=== PATIENT | female | born 1965 | race Caucasian/White ===

== ENCOUNTER 2021-12-10 10:00 | Emergency (ER) | payer BC, SELFPAY ==
[2021-12-10] VITALS (55 sets, daily range): BP systolic 180–238; BP diastolic 78–138; PULSE 59–88; RESP 18–38; TEMP 36.7; O2SAT 90–99; BMI 44.6
--- NOTE | 2021-12-10 10:24 | ED.GENADULT ---
HPI - General Adult General Chief complaint: Hypertension Stated complaint: Extremely high blood pressure, from [facility] Time Seen by Provider: 12/10/21 10:16 Source: patient Mode of arrival: Wheelchair Limitations: no limitations History of Present Illness HPI narrative: This is a 56-year-old female who comes emergency department some from the walk-in clinic for high blood pressure. She went today because she has had a whooshing sound in her ears intermittently. Patient states it makes her feel crazy. She has been very anxious for the last year to 2 with the pandemic and has not been sleeping well. She was up for 36 hours. She does feels very anxious at times. Patient does have a history of hypertension, diabetes and NE with 6 cardiac stents. Patient has stopped all of her medications she gets her insulin [id number] without a prescription. Patient does still take an aspirin daily. She has been checking her blood pressure regularly and she was worse with a persistent systolic blood pressure in the 240s/110s she has been attempting to decrease her blood pressure with her diet and now is running consistently 180-210 for her systolic. Patient occasionally has chest discomfort, she occasionally has shortness of breath, she occasionally has nausea. She is not been having anything persistently or recently. She has not had any syncope. She occasionally had headaches. She is not appreciate a new swelling in her extremities. No tobacco, alcohol or illicit. She is currently without a primary care provider. Related Data Home Medications Medication Instructions Recorded Confirmed aspirin 81 mg tablet,delayed 81 mg PO DAILY 08/03/21 08/03/21 release (Adult Low Dose Aspirin) cetirizine 10 mg capsule (Zyrtec) 10 mg PO DAILY PRN 08/03/21 08/03/21 insulin NPH isoph U-100 human 100 50 unit SUBCUT BID ml 08/03/21 08/03/21 unit/mL subcutaneous suspension (Novolin N NPH U-100 Insulin isophane) insulin regular human 100 unit/mL 1 sliding scale dose SUBCUT 08/03/21 08/03/21 injection solution (Novolin R USEASDIRECTD Regular U-100 Insulin) Previous Rx's Medication Instructions Recorded losartan 50 mg-hydrochlorothiazide 1 tab PO DAILY #20 tab 12/10/21 12.5 mg tablet Allergies Allergy/AdvReac Type Severity Reaction Status Date / Time alcohol Allergy Verified 12/10/21 10:20 sucralfate [From Carafate] AdvReac Intermediate Verified 12/10/21 10:20 Review of Systems Review of Systems ROS Unobtainable: All systems reviewed & are unremarkable except as noted in HPI and below Patient History Social History Smoking Status: Never smoker Smoking Status: Never smoker Substance Use Type: does not use Exam Narrative Exam Narrative: GENERAL: Alert and oriented x three, obese female in mild distress. HEENT: Head normocephalic, atraumatic, EOMI, pupils reactive, face symmetric, moist mucous membranes. Bilateral ear exam, TMs are intact, no erythema, no swelling, TM is flat with good light reflex and no effusion. NECK: Supple, full range of motion CARDIOVASCULAR: Regular rate and rhythm without murmurs, rubs or gallops. RESPIRATORY: Breath sounds equal bilaterally, no wheezes rales or rhonchi. ABDOMEN: Soft, nontender. Normoactive bowel sounds all 4 quadrants. No guarding or rebound, rigidity, no mass : No CVA tenderness EXTREMITIES: Normal range of motion, no clubbing or edema. Neurovascularly intact NEUROLOGICAL: Cranial nerves II through XII grossly intact. Moving all extremities SKIN: Warm, dry, no petechiae, no rashes or lesions. Initial Vital Signs Initial Vital Signs: Vital Signs Pulse Rate 88 12/10/21 10:15 Respiratory Rate 29 H 12/10/21 10:15 Pulse Oximetry 93 12/10/21 10:15 Course Orders Ordered: ED Orders 12/10/21 10:28 XR chest 1V Stat EKG-12 Lead Stat 12/10/21 10:43 Complete Blood Count AUTO DIFF Stat Comprehensive Metabolic Panel Stat Lipase Stat Magnesium Stat Troponin & CK Cardiac Panel Stat 12/10/21 12:43 COVID19 -Nasal swab/Pre-Proc Stat 12/10/21 12:47 Troponin I Stat Discontinued Medications Losartan Potassium (Losartan 50 Mg Tablet) 50 mg PO NOW ONE Stop: 12/10/21 13:31 Last Admin: 12/10/21 13:36 Dose: 50 mg Documented by: TALIB Metoprolol Tartrate (Metoprolol Tartrate 5 Mg/5 Ml Inj) 5 mg IV Q5M [facility] Stop: 12/10/21 11:26 Last Admin: 12/10/21 12:02 Dose: 5 mg Documented by: Admin: 12/10/21 11:47 Dose: 5 mg Documented by: Admin: 12/10/21 11:14 Dose: 5 mg Documented by: MANN Reevaluation(s) Reevaluation #1: Discussed with patient her troponin is stable. Reviewed her EKG changes today. Discussed keeping her for observation for hypertensive urgency/emergency patient prefers to return home. Her blood pressure has been slightly improving but not a normalized level. She has been off medications for some time and has been persistently elevated for quite some time. Some plan to reinitiate patient's she a prior blood pressure medications and attempted to arrange follow-up. Vital Signs Vital signs: Vital Signs - 8 hr 12/10/21 11:00 12/10/21 11:05 12/10/21 11:06 Pulse Rate 81 80 79 Respiratory Rate Blood Pressure 238/138 H 235/100 H Pulse Oximetry 92 94 94 12/10/21 11:10 12/10/21 11:15 12/10/21 11:20 Pulse Rate 80 82 72 Respiratory Rate Blood Pressure Pulse Oximetry 92 93 95 12/10/21 11:21 12/10/21 11:25 12/10/21 11:30 Pulse Rate 67 64 Respiratory Rate Blood Pressure 226/92 H Pulse Oximetry 94 95 92 12/10/21 11:31 12/10/21 11:35 12/10/21 11:40 Pulse Rate 63 65 65 Respiratory Rate Blood Pressure 212/86 H Pulse Oximetry 91 92 91 12/10/21 11:45 12/10/21 11:50 12/10/21 11:51 Pulse Rate 66 66 65 Respiratory Rate Blood Pressure 206/84 H Pulse Oximetry 90 L 94 92 12/10/21 11:55 12/10/21 11:56 12/10/21 12:00 Pulse Rate 61 61 60 Respiratory Rate Blood Pressure 204/88 H Pulse Oximetry 91 92 91 12/10/21 12:01 12/10/21 12:05 12/10/21 12:06 Pulse Rate 60 61 63 Respiratory Rate Blood Pressure 204/86 H 207/85 H Pulse Oximetry 92 95 95 12/10/21 12:10 12/10/21 12:11 12/10/21 12:15 Pulse Rate 62 61 62 Respiratory Rate Blood Pressure 212/88 H Pulse Oximetry 95 94 95 12/10/21 12:16 12/10/21 12:20 12/10/21 12:21 Pulse Rate 62 62 62 Respiratory Rate Blood Pressure 204/86 H 192/79 H Pulse Oximetry 94 94 95 12/10/21 12:25 12/10/21 12:26 12/10/21 12:30 Pulse Rate 61 60 59 L Respiratory Rate Blood Pressure 209/86 H Pulse Oximetry 95 93 94 12/10/21 12:35 12/10/21 12:36 12/10/21 12:40 Pulse Rate 60 64 62 Respiratory Rate Blood Pressure 191/88 H Pulse Oximetry 94 92 96 12/10/21 12:45 12/10/21 12:46 12/10/21 12:50 Pulse Rate 63 62 65 Respiratory Rate Blood Pressure 200/81 H Pulse Oximetry 93 94 94 12/10/21 12:55 12/10/21 12:56 12/10/21 13:00 Pulse Rate 64 64 66 Respiratory Rate 20 Blood Pressure 228/95 H Pulse Oximetry 95 93 95 12/10/21 13:01 12/10/21 13:05 12/10/21 13:10 Pulse Rate 63 66 65 Respiratory Rate 19 24 24 Blood Pressure 202/89 H Pulse Oximetry 95 95 95 12/10/21 13:11 12/10/21 13:15 12/10/21 13:16 Pulse Rate 65 63 63 Respiratory Rate 24 27 H 21 Blood Pressure 203/86 H 194/85 H Pulse Oximetry 92 95 94 12/10/21 13:20 12/10/21 13:21 12/10/21 13:25 Pulse Rate 62 64 66 Respiratory Rate 21 23 38 H Blood Pressure 185/82 H Pulse Oximetry 93 95 95 12/10/21 13:26 12/10/21 13:30 12/10/21 13:31 Pulse Rate 67 67 66 Respiratory Rate 37 H 28 H 20 Blood Pressure 180/78 H 224/88 H Pulse Oximetry 95 94 92 12/10/21 13:49 Pulse Rate 67 Respiratory Rate 18 Blood Pressure 209/86 H Pulse Oximetry 99 Medical Decision Making Lab Data Result diagrams: 12/10/21 10:43 12/10/21 10:43 Labs: Lab Results 12/10/21 12/10/21 12/10/21 Range/Units 10:43 10:43 12:43 WBC 6.7 (4.5-11.0) X10^3/uL RBC 4.99 (4.0-5.2) X10^6/uL Hgb 14.9 (12.0-16.0) g/dL Hct 44.1 (36-46) % MCV 88.3 (80-100) fL MCH 29.8 (26-34) PG MCHC 33.7 (30-36) % RDW 14.5 (11.6-14.8) % Plt Count 256 (150-400) X10^3/uL Neut % (Auto) 71.2 (50-75) % Lymph % (Auto) 19.9 L (25-40) % Levy % (Auto) 6.6 (3-14) % Eos % (Auto) 1.1 L (2-4) % Baso % (Auto) 1.2 (0-2) % Neut # (Auto) 4800 (4522-0635) /uL Lymph # (Auto) 1300 (4537-8944) /uL Levy # (Auto) 400 (0-900) /uL Eos # (Auto) 100 (0-450) /uL Baso # (Auto) 100 (0-100) /uL Sodium 141 (137-145) mmol/L Potassium 3.6 (3.4-5.1) mmol/L Chloride 102 (98-107) mmol/L Carbon Dioxide 31 (22-32) mmol/L BUN 13 (7-17) mg/dL Creatinine 0.83 (0.52-1.04) mg/dL Estimated GFR > 60.0 (>60) mL/min BUN/Creatinine Ratio 15.7 (6-22) Glucose 236 H (70-100) mg/dL Calcium 9.4 (8.4-10.2) mg/dL Magnesium 1.8 (1.6-2.3) mg/dL Total Bilirubin 0.4 (0.2-1.3) mg/dL AST 40 H (14-36) IU/L ALT 39 H (<35) IU/L Alkaline Phosphatase 91 (38-126) U/L Total Creatine Kinase 146 H (30-135) U/L CK-MB (CK-2) 3.34 H (<2.37) ng/mL CK-MB (CK-2) Rel Index 2.3 (1.5-5.0) % Troponin I 0.038 H (0.01-0.034) ng/mL Total Protein 7.6 (6.3-8.2) g/dL Albumin 4.1 (3.5-5.0) g/dL Globulin 3.5 (1.7-4.1) g/dL Albumin/Globulin Ratio 1.2 (1.0-2.8) Lipase 52 (23-300) U/L SARS-CoV-2 (PCR) Negative (Negative) 12/10/21 Range/Units 12:47 WBC (4.5-11.0) X10^3/uL RBC (4.0-5.2) X10^6/uL Hgb (12.0-16.0) g/dL Hct (36-46) % MCV (80-100) fL MCH (26-34) PG MCHC (30-36) % RDW (11.6-14.8) % Plt Count (150-400) X10^3/uL Neut % (Auto) (50-75) % Lymph % (Auto) (25-40) % Levy % (Auto) (3-14) % Eos % (Auto) (2-4) % Baso % (Auto) (0-2) % Neut # (Auto) (5286-4545) /uL Lymph # (Auto) (1045-0465) /uL Levy # (Auto) (0-900) /uL Eos # (Auto) (0-450) /uL Baso # (Auto) (0-100) /uL Sodium (137-145) mmol/L Potassium (3.4-5.1) mmol/L Chloride (98-107) mmol/L Carbon Dioxide (22-32) mmol/L BUN (7-17) mg/dL Creatinine (0.52-1.04) mg/dL Estimated GFR (>60) mL/min BUN/Creatinine Ratio (6-22) Glucose (70-100) mg/dL Calcium (8.4-10.2) mg/dL Magnesium (1.6-2.3) mg/dL Total Bilirubin (0.2-1.3) mg/dL AST (14-36) IU/L ALT (<35) IU/L Alkaline Phosphatase (38-126) U/L Total Creatine Kinase (30-135) U/L CK-MB (CK-2) (<2.37) ng/mL CK-MB (CK-2) Rel Index (1.5-5.0) % Troponin I 0.038 H (0.01-0.034) ng/mL Total Protein (6.3-8.2) g/dL Albumin (3.5-5.0) g/dL Globulin (1.7-4.1) g/dL Albumin/Globulin Ratio (1.0-2.8) Lipase (23-300) U/L SARS-CoV-2 (PCR) (Negative) Imaging Data Chest x-ray: My Impression: cardiomegaly. Radiologist's Impression: Close Chest X-Ray (Signed) Marcus Diaz - 12/10/21 Launch?[place] [address] XRay Report Signed Patient: Tona Tabor MR#: [id number] : 1965 Acct:[id number] Age/Sex: 56 / F Date of Service: 12/10/21 Loc: ED Accession Number: [id number] ?? Procedure: XR chest 1V Ordering Provider: Shannon Payne D.O. PROCEDURE:? XR CHEST 1V ? INDICATIONS:? chest pain ? TECHNIQUE:? One view of the chest was acquired.? ? COMPARISON:? None. ? FINDINGS:? ? Surgical changes and devices:? None.? ? Lungs and pleura:? Lungs are clear.? No pleural effusions or pneumothorax.? ? Mediastinum:? Mediastinal contours appear normal.? Heart size appears prominent.? ? Bones and chest wall:? No suspicious bony lesions.? Overlying soft tissues appear unremarkable.? ? IMPRESSION:? Heart size appears prominent.? Lungs are clear. ? ? ? Dictated by: Marcus Diaz M.D. on 12/10/2021 at 11:15 ? ? Approved by: Marcus Diaz M.D. on 12/10/2021 at 11:16?? ECG Data Attestation: I personally reviewed and interpreted this ECG as follows: Prior ECG tracings: available for review Interpretation: Sinus rhythm rate 84, IN 150, QRS of 94 and QTC 444. Patient has depression in lead 2 but not appreciated lead 3 or AVF. No acute ST elevation appreciated. Patient does have some inverted T-wave in V5 and V6. As well as 1 in aVL. Patient has prior from 08/07/2008 which does not show T-wave inversions. No others in the interim or available. EKG 2. Shows sinus rhythm rate of 60 5p are 160 QRS of 92 and QTC 424. No acute ST elevation. Patient does have T-waves inverted in 1, 2 and aVL as well as V5 and V6. Patient does not have priors for comparison from today. No dynamic changes in comparison from earlier EKG today. MDM Narrative Medical decision making narrative: This is a 56-year-old female comes emergency department with complaint of a whooshing sound in her ears. Patient is quite hypertensive and was sent for the walk-in clinic for blood pressure in the 230/110 range. Patient's EKG does show some T-wave inversion. She is asymptomatic. She is hyperglycemic troponin is indeterminate with no acute renal changes. Patient's repeat troponin is stable she does have T-wave changes but are not dynamic and her prior EKG is from 2007. She is asymptomatic but is quite hypertensive. Patient's blood pressure has been improving to 190. After discussion with patient she continues to be asymptomatic. She would like to return home we did discuss observation for hypertensive urgency/emergency. Patient does not wish to stay in considering she is currently asymptomatic with a stable troponin and no dynamic EKG changes with her last EKG being in 2007 I do not feel that this is inappropriate. Discussed starting patient she has been on a similar which is not helpful, she is on metoprolol in the past which he states did not touch her blood pressure. She will likely need multiple medications she was on a diuretic CESAR-inhibitor combinations will try losartan with an HCTZ and plan to help her establish with primary care who can also help treat her chronic anxiety and with her additional risk management. Discharge Plan Departure Patient Disposition: Home Clinical Impression: Hypertension Instructions: DI for High Blood Pressure Activity Restrictions/Additional Instructions: Follow-up with primary care. You can call [phone] to help you find or establish with a primary care physician. Second option is Dr. Ro his contact information is included below. They can often do tele visits and can help. Treat your anxiety and offer options such as counseling for your anxiety. Continue blood pressure medication as prescribed. With your persistently elevated blood pressures at home you do need to be on a daily blood pressure medication and likely medications to protect your heart with your prior history of heart attacks. You should have your renal function rechecked and the next several weeks. This is normal after starting this category of blood pressure medication. Pres[place] sent [facility] [place]. Please return for fevers, chest pain or shortness of breath, sweatiness, persistent nausea or vomiting, new swelling in her extremities or other new or concerning symptoms. Prescriptions: New losartan-hydrochlorothiazide 50-12.5 mg tablet 1 tab PO DAILY Qty: 20 0RF No Action aspirin [Adult Low Dose Aspirin] 81 mg tablet,delayed release (DR/EC) 81 mg PO DAILY 0RF Novolin R Regular U-100 Insuln 100 unit/mL solution 1 sliding scale dose SUBCUT USEASDIRECTD 0RF Novolin N NPH U-100 Insulin 100 unit/mL suspension 50 unit SUBCUT BID 0RF Zyrtec 10 mg capsule 10 mg PO DAILY PRN0RF Referrals: Miscellaneous,MD David [Primary Care Provider] - Foster Ro MD [Physician] -
--- NOTE | 2021-12-10 10:28 | DI.RAD.S_ITS ---
PROCEDURE: XR CHEST 1V INDICATIONS: chest pain TECHNIQUE: One view of the chest was acquired. COMPARISON: None. FINDINGS: Surgical changes and devices: None. Lungs and pleura: Lungs are clear. No pleural effusions or pneumothorax. Mediastinum: Mediastinal contours appear normal. Heart size appears prominent. Bones and chest wall: No suspicious bony lesions. Overlying soft tissues appear unremarkable. IMPRESSION: Heart size appears prominent. Lungs are clear. Dictated by: Marcus Diaz M.D. on 12/10/2021 at 11:15 Approved by: Marcus Diaz M.D. on 12/10/2021 at 11:16
[2021-12-10 11:10] LABS: Add Manual Diff / Slide Review NO; Basophils Absolute Auto 100 /uL (0-100); Basophils Percent Auto 1.2 % (0-2); Eosinophils Absolute Auto 100 /uL (0-450); Eosinophils Percent Auto 1.1 % (2-4); Hematocrit 44.1 % (36-46); Hemoglobin 14.9 g/dL (12.0-16.0); Lymphocytes Absolute Auto 1300 /uL (1100-4500); Lymphocytes Percent Auto 19.9 % (25-40); Mean Corpuscular HGB Conc 33.7 % (30-36); Mean Corpuscular Hemoglobin 29.8 PG (26-34); Mean Corpuscular Volume 88.3 fL (80-100); Monocytes Absolute Auto 400 /uL (0-900); Monocytes Percent Auto 6.6 % (3-14); Neutrophils Absolute Auto 4800 /uL (1500-7000); Neutrophils Percent Auto 71.2 % (50-75); Platelet Count 256 X10^3/uL (150-400); Red Blood Cell Count 4.99 X10^6/uL (4.0-5.2); Red Cell Distribution Width 14.5 % (11.6-14.8); White Blood Cell Count 6.7 X10^3/uL (4.5-11.0)
[2021-12-10] MEDS: METOPROLOL TARTRATE 5 MG/5 ML INJ IV ×3 (11:14→12:02)
[2021-12-10 11:20] LABS: Alanine Aminotransferase 39 IU/L (<35); Albumin 4.1 g/dL (3.5-5.0); Albumin Globulin Ratio 1.2 (1.0-2.8); Alkaline Phosphatase 91 U/L (38-126); Aspartate Aminotransferase 40 IU/L (14-36); BUN Creatinine Ratio 15.7 (6-22); Bilirubin Total 0.4 mg/dL (0.2-1.3); Blood Urea Nitrogen 13 mg/dL (7-17); Calcium 9.4 mg/dL (8.4-10.2); Carbon Dioxide 31 mmol/L (22-32); Chloride 102 mmol/L (98-107); Creatine Kinase 146 U/L (30-135); Estimated Glomerular Filt Rate > 60.0 mL/min (>60); Globulin 3.5 g/dL (1.7-4.1); Glucose 236 mg/dL (70-100); HEMOLYSIS < 15 (0-50); Lipase 52 U/L (23-300); Magnesium 1.8 mg/dL (1.6-2.3); Potassium 3.6 mmol/L (3.4-5.1); Sodium 141 mmol/L (137-145); Total Protein 7.6 g/dL (6.3-8.2)
[2021-12-10 11:31] LABS: Troponin I 0.038 ng/mL (0.01-0.034)
[2021-12-10 11:35] LABS: CKMB % Relative Index 2.3 % (1.5-5.0); Creatine Kinase MB 3.34 ng/mL (<2.37)
[2021-12-10 12:58] LABS: COVID19 -Nasal RAPID Negative (Negative)
[2021-12-10 13:16] LABS: Troponin I 0.038 ng/mL (0.01-0.034)
[2021-12-10] MEDS: LOSARTAN 50 MG TABLET PO (13:36)
== END 2021-12-10 13:50 | disposition home or self-care (01) ==
PROVIDERS: Emergency Provider Emergency Medicine
DX: I10 Essential (primary) hypertension (principal); Z20.822 Contact with and (suspected) exposure to COVID-19
CPT/HCPCS: 36415; 71045; 80053; 82550; 82553; 83690; 83735; 84484; 85025; 87635; 93005; 96374; 99284; C9803

== ENCOUNTER → 2021-12-25 08:12 | Outpatient (CLI) | payer BC, SELFPAY ==
[2021-12-25 09:53] LABS: Alanine Aminotransferase 39 IU/L (<35); Albumin 4.5 g/dL (3.5-5.0); Albumin Globulin Ratio 1.2 (1.0-2.8); Alkaline Phosphatase 81 U/L (38-126); Aspartate Aminotransferase 34 IU/L (14-36); BUN Creatinine Ratio 19.6 (6-22); Bilirubin Total 0.4 mg/dL (0.2-1.3); Blood Urea Nitrogen 18 mg/dL (7-17); Calcium 9.5 mg/dL (8.4-10.2); Carbon Dioxide 36 mmol/L (22-32); Chloride 101 mmol/L (98-107); Estimated Glomerular Filt Rate > 60.0 mL/min (>60); Globulin 3.9 g/dL (1.7-4.1); Glucose 64 mg/dL (70-100); HEMOLYSIS < 15 (0-50); Potassium 3.5 mmol/L (3.4-5.1); Sodium 143 mmol/L (137-145); Total Protein 8.4 g/dL (6.3-8.2)
[2021-12-25 10:21] LABS: TSH w/ Reflex to FT4 2.51 uIU/mL (0.47-4.68)
[2021-12-25 10:31] LABS: Creatinine Urine Random 178.8 mg/dL
[2021-12-25 10:38] LABS: Microalbumin Urine Random 16.1 mg/dL (0-1.6)
== END ==
PROVIDERS: Referring Provider Family Medicine; Visit Provider Family Medicine
DX: I10 Essential (primary) hypertension (principal); R73.9 Hyperglycemia, unspecified
CPT/HCPCS: 36415; 80053; 82043; 82570; 83036; 84443